=== PATIENT | female | born 1970 | race Caucasian/White ===

== ENCOUNTER 2017-07-04 14:52 | Emergency (ER) | payer SELFPAY ==
[2017-07-04] MEDS ORDERED: IPRATROPIUM/ALBUTEROL 3 ML VIAL NEB ONE (15:13)
[2017-07-04] MEDS ORDERED: cefTRIAXone SODIUM 1 GM in SODIUM CHL 0.9% 50ML MIN-BAG+ 50 ML IVPB ONE (15:15)
[2017-07-04] MEDS ORDERED: cefTRIAXone SODIUM 1 GM VIAL ONE (15:34)
[2017-07-04] MEDS ORDERED: SODIUM CHL 0.9% 50ML MIN-BAG+ 50 ML IVPB ONE (15:34)
[2017-07-04 15:40] VITALS: TEMP 97.6
--- NOTE | 2017-07-04 16:00 | RAD ---
EXAM DESCRIPTION: Chest,2 Views CLINICAL HISTORY: sob COMPARISON: None FINDINGS: Two-view chest x-ray shows cardiomediastinal silhouette and pulmonary vasculature to be within normal limits. The lungs are hyperinflated. Chronic appearing increased interstitial markings are seen without focal consolidation. Mild blunting of costophrenic angles could be secondary to flattening of the hemidiaphragms related to hyperexpansion of the lungs versus small pleural effusions. Mild dextrocurvature of the mid thoracic spine is seen. IMPRESSION: No radiographic evidence of acute cardiopulmonary disease in this emphysematous chest. Electronically signed by: Waldo Reilly MD 07/04/2017 3:59 PM CDT
[2017-07-04] MEDS ORDERED: predniSONE 20 MG TAB PO ONE (16:47)
[2017-07-04] MEDS ORDERED: AZITHROMYCIN 250 MG TAB PO ONE (16:47)
--- NOTE | 2017-07-04 16:50 | ED.PDOC ---
History of Present Illness - General Chief Complaint: Cardiovascular Problem Stated Complaint: chest pressure Time Seen by Provider: 07/04/17 15:04 Source: patient Exam Limitations: no limitations - History of Present Illness Initial Comments: the patient is a 47-year-old female presenting to the emergency room secondary to shortness of breath and a productive cough for the last 24-36 hours. Questionable fevers. No chest pain. She has smoked for a very long time. No history of COPD however. No daily medications. Timing/Duration: 24 hours Severity: moderate Improving Factors: nothing Worsening Factors: nothing Associated Symptoms: malaise, shortness of breath Allergies/Adverse Reactions: Allergies NO KNOWN ALLERGY Allergy (Verified 07/04/17 15:28) Home Medications: Ambulatory Orders Albuterol Inhaler [Ventolin Hfa Inhaler] 2 puff INH Q6HR #1 inh 07/04/17 Azithromycin 500 mg PO DAILY #5 tab 07/04/17 predniSONE [Prednisone] 20 mg PO DAILY #5 tab 07/04/17 Review of Systems - Review of Systems Constitutional: States: malaise EENTM: States: no symptoms reported Respiratory: States: cough, short of breath, wheezing Cardiology: States: no symptoms reported Gastrointestinal/Abdominal: States: no symptoms reported Genitourinary: States: no symptoms reported Musculoskeletal: States: no symptoms reported Skin: States: no symptoms reported Neurological: States: no symptoms reported Endocrine: States: no symptoms reported All other Systems: No Change from Baseline Past Medical History (General) - Patient Medical History Surgical History: tonsillectomy - Vaccination History Hx Influenza Vaccination: No Hx Pneumococcal Vaccination: No - Social History Hx Tobacco Use: No Hx Alcohol Use: No Hx Substance Use: No Hx Substance Use Treatment: No Hx Depression: No - Female History Patient is a Female of Child Bearing Age (10 -59 yrs old): Yes - Triage Comment ED Triage Comment: LMP 3 weeks ago Family Medical History - Family History Brother Hx Family Diabetes: Yes Physical Exam - Physical Exam General Appearance: Alert, No apparent distress Eye Exam: bilateral normal Ears, Nose, Throat: hearing grossly normal, normal ENT inspection, normal pharynx Neck: full range of motion, supple Respiratory: chest non-tender, decreased breath sounds, accessory muscle use, wheezing Cardiovascular/Chest: normal peripheral pulses, regular rate, rhythm, no edema Peripheral Pulses: radial,right: 2+, radial,left: 2+, dorsalis pedis,right: 2+, dorsalis pedis,left: 2+ Gastrointestinal/Abdominal: non tender, soft Rectal Exam: deferred Back Exam: normal inspection, no CVA tenderness Extremity: normal range of motion, non-tender, normal inspection, no pedal edema , no calf tenderness, normal capillary refill Neurologic: management sme II-XII nml as tested, no motor/sensory deficits, alert, normal mood/affect, oriented x 3 Skin Exam: normal color Comments: Vital Signs - 24 hr 07/04/17 07/04/17 14:58 15:29 Temperature 97.6 F Pulse Rate [ 90 pulse ox] Respiratory 18 20 Rate Blood Pressure 145/97 [Left Arm] O2 Sat by Pulse 97 Oximetry Progress - Progress Progress: 07/04/17 16:50 the patient is a 47-year-old female presenting to the emergency room with what appears to be a significant COPD exacerbation with mild hypoxia upon arrival. The patient responded well to the breathing treatment. The patient received a dose of Rocephin, and azithromycin here. She also received a dose of prednisone and a nebulizer treatment. She'll be written for albuterol inhaler for use as an outpatient as well as 5 days of oral prednisone and 5 days of oral azithromycin. She needs to refrain from smoking. ER warnings were given for any worsening. She is to follow up with her primary care doctor next week. - Results/Orders Results/Orders: Laboratory Tests 07/04/17 07/04/17 07/04/17 15:28 15:28 15:47 WBC 7.8 RBC 4.99 Hgb 13.8 Hct 41.8 MCV 83.6 MCH 27.6 MCHC 33.0 RDW 16.4 H Plt Count 283 MPV 9.2 Absolute Neuts (auto) 5.60 Absolute Lymphs (auto) 1.10 Absolute Monos (auto) 0.60 Absolute Eos (auto) 0.40 Absolute Basos (auto) 0.10 Neutrophils % 72.0 Lymphocytes % 13.6 L Monocytes % 8.2 Eosinophils % 4.9 Basophils % 1.3 Sodium 137 Potassium 4.0 Chloride 103 Carbon Dioxide 27 Anion Gap 11.0 L BUN 11 Creatinine 0.72 BUN/Creatinine Ratio 15.3 Random Glucose 80 Serum Osmolality 272.2 L Calcium 8.0 L Total Bilirubin 0.5 AST 19 ALT 14 Alkaline Phosphatase 74 Creatine Kinase 112 CK-MB (CK-2) 2.6 CK-MB (CK-2) % Not Reportable Troponin I < 0.02 B-Natriuretic Peptide 75.3 Serum Total Protein 7.0 Albumin 3.8 Globulin 3.2 Albumin/Globulin Ratio 1.2 Urine Color Urine Appearance Urine pH Ur Specific [place] Urine Protein Urine Glucose (UA) Urine Ketones Urine Blood Urine Nitrite Urine Bilirubin Urine Urobilinogen Ur Leukocyte Esterase Urine RBC Urine WBC Ur Epithelial Cells Urine Bacteria Urine HCG, Qual Group A Strep DNA Negative 07/04/17 07/04/17 16:00 16:00 WBC RBC Hgb Hct MCV MCH MCHC RDW Plt Count MPV Absolute Neuts (auto) Absolute Lymphs (auto) Absolute Monos (auto) Absolute Eos (auto) Absolute Basos (auto) Neutrophils % Lymphocytes % Monocytes % Eosinophils % Basophils % Sodium Potassium Chloride Carbon Dioxide Anion Gap BUN Creatinine BUN/Creatinine Ratio Random Glucose Serum Osmolality Calcium Total Bilirubin AST ALT Alkaline Phosphatase Creatine Kinase CK-MB (CK-2) CK-MB (CK-2) % Troponin I B-Natriuretic Peptide Serum Total Protein Albumin Globulin Albumin/Globulin Ratio Urine Color Yellow Urine Appearance Clear Urine pH 5.5 Ur Specific [place] >= 1.030 Urine Protein 30 Urine Glucose (UA) Negative Urine Ketones 15 H Urine Blood Negative Urine Nitrite Negative Urine Bilirubin Small H Urine Urobilinogen 0.2 Ur Leukocyte Esterase Negative Urine RBC 0 Urine WBC 0 Ur Epithelial Cells 1-3 Urine Bacteria 0 Urine HCG, Qual Negative Group A Strep DNA hest x-ray shows COPD and air trapping. No overt pneumonia. EKG shows mild right axis deviation. A partial right bundle branch block. No acute ST segment changes otherwise concerning for ischemia. There is normal sinus rhythm. Departure - Departure Clinical Impression: COPD with exacerbation Disposition: Discharge to Home or Self Care Condition: Fair Departure Forms: ED Discharge - Pt. Copy, Patient Portal Self Enrollment Instructions: DI for Chronic Obstructive Pulmonary Disease Diet: regular diet Activity: increase activity as tolerated Prescriptions: Albuterol Inhaler [Ventolin Hfa Inhaler] 2 puff INH Q6HR #1 inh Azithromycin 500 mg PO DAILY #5 tab predniSONE [Prednisone] 20 mg PO DAILY #5 tab Home Medications: Ambulatory Orders Albuterol Inhaler [Ventolin Hfa Inhaler] 2 puff INH Q6HR #1 inh 07/04/17 Azithromycin 500 mg PO DAILY #5 tab 07/04/17 predniSONE [Prednisone] 20 mg PO DAILY #5 tab 07/04/17 Additional Instructions: the patient is a 47-year-old female presenting to the emergency room with what appears to be a significant COPD exacerbation with mild hypoxia upon arrival. The patient responded well to the breathing treatment. The patient received a dose of Rocephin, and azithromycin here. She also received a dose of prednisone and a nebulizer treatment. She'll be written for albuterol inhaler for use as an outpatient as well as 5 days of oral prednisone and 5 days of oral azithromycin. She needs to refrain from smoking. ER warnings were given for any worsening. She is to follow up with her primary care doctor next week.
[2017-07-04 17:17] VITALS: BP 122/86; O2SAT 90
== END 2017-07-04 17:19 | disposition home or self-care (01) ==
LOC: ER 14:52
DX: J44.1 Chronic obstructive pulmonary disease with (acute) exacerbation (principal); I45.10 Unspecified right bundle-branch block
CPT/HCPCS: 36415; 71020; 80053; 81001; 81025; 82550; 82553; 83880; 84484; 85025; 87040; 87070; 87502; 87651; 93005; 94640; J0696; J7050; J7512; J7620; Q0144

== ENCOUNTER 2017-08-12 11:32 | Emergency (ER) | payer SELFPAY ==
--- NOTE | 2017-08-12 11:56 | ED.PDOC ---
History of Present Illness - General Chief Complaint: Respiratory Problem Stated Complaint: Cough, congestion Time Seen by Provider: 08/12/17 11:46 Source: patient, RN notes reviewed, Vital Signs reviewed Exam Limitations: no limitations - History of Present Illness Comments: Patient comes in with c/o cough and congestion for ~1 month. She has not improved since last seen on 07/05/17. No fever but + chills and night sweats. Vomited X1 this morning. Timing/Duration: constant - for >1 month Cough Quality/Degree: moderate, productive cough, sputum, blood streaked sputum Possible Cause: no prior episodes Improving Factors: nothing Worsening Factors: nothing Associated Symptoms: cough, fever/chills, sore throat Allergies/Adverse Reactions: Allergies NO KNOWN ALLERGY Allergy (Verified 08/12/17 11:44) Home Medications: Ambulatory Orders Albuterol Inhaler [Ventolin Hfa Inhaler] 2 puff INH Q6HR #1 inh 07/04/17 Azithromycin [Zithromax Z-Carrington] 1 ea PO DAILY #1 pack 08/12/17 Methylprednisolone [Medrol Dose [place]] 4 mg PO DAILY #1 pack 08/12/17 guaiFENesin W/CODEINE LIQ [Robitussin AC] 5 ml PO Q6HR PRN #120 ml 08/12/17 Review of Systems - Review of Systems Constitutional: States: chills, diaphoresis, malaise. Denies: fever EENTM: States: nose congestion, throat pain. Denies: ear pain Respiratory: States: cough, short of breath, wheezing Cardiology: States: no symptoms reported Gastrointestinal/Abdominal: States: vomiting. Denies: abdominal pain Musculoskeletal: States: no symptoms reported Skin: States: no symptoms reported Neurological: States: no symptoms reported All other Systems: No Change from Baseline Past Medical History (General) - Patient Medical History Hx Stroke: No Hx Congestive Heart Failure: No Hx Diabetes: No Hx Cancer: - tubal ligation Hx MRSA: No Surgical History: other - Vaccination History Hx Influenza Vaccination: No Hx Pneumococcal Vaccination: No - Social History Hx Tobacco Use: Yes Hx Alcohol Use: No Hx Substance Use: No Hx Substance Use Treatment: No Hx Depression: No - Female History Patient is a Female of Child Bearing Age (10 -59 yrs old): Yes Patient : No Family Medical History - Family History Brother Hx Family Diabetes: Yes Physical Exam - Physical Exam General Appearance: Alert, Comfortable, Ill Appearing, Well Developed, Well Groomed, Well Hydrated, Well Nourished ENT Exam: normal ENT inspection, hearing grossly normal, TMs normal, pharynx normal Neck: non-tender, supple, normal inspection Respiratory: no respiratory distress, no accessory muscle use, decreased breath sounds - RLL Cardiovascular/Chest: regular rate, rhythm, no gallop, no JVD, no murmur Extremity: normal inspection Neurologic: alert, normal mood/affect, oriented x 3 Skin Exam: normal color, warm/dry Comments: Vital Signs 08/12/17 11:38 Temperature 99.0 F Pulse Rate [ 84 Left Radial] Respiratory 20 Rate Blood Pressure 127/82 [Left Arm] O2 Sat by Pulse 93 L Oximetry Progress - EKG/XRAY/CT XRAY: chest - No acute pulmonaary process per Radiologist Departure - Departure Clinical Impression: Acute bronchitis Qualifiers: Bronchitis organism: unspecified organism Qualified Code(s): J20.9 - Acute bronchitis, unspecified Time of Disposition: 12:21 Disposition: Discharge to Home or Self Care Condition: Good Departure Forms: ED Discharge - Pt. Copy, Patient Portal Self Enrollment Instructions: DI for Acute Bronchitis Diet: resume usual diet Activity: increase activity as tolerated Prescriptions: guaiFENesin W/CODEINE LIQ [Robitussin AC] 5 ml PO Q6HR PRN #120 ml PRN Reason: Cough Azithromycin [Zithromax Z-Carrington] 1 ea PO DAILY #1 pack Methylprednisolone [Medrol Dose [place]] 4 mg PO DAILY #1 pack Home Medications: Ambulatory Orders Albuterol Inhaler [Ventolin Hfa Inhaler] 2 puff INH Q6HR #1 inh 07/04/17 Azithromycin [Zithromax Z-Carrington] 1 ea PO DAILY #1 pack 08/12/17 Methylprednisolone [Medrol Dose [place]] 4 mg PO DAILY #1 pack 08/12/17 guaiFENesin W/CODEINE LIQ [Robitussin AC] 5 ml PO Q6HR PRN #120 ml 08/12/17
[2017-08-12 12:05] VITALS: BP 127/82; TEMP 99; O2SAT 93
--- NOTE | 2017-08-12 12:13 | RAD ---
Procedure: XR CHEST 2 VIEWS Exam Date: 08/12/2017 11:50 AM CDT Ordering Provider: Elizabeth Sparks Clinical Indication: cough/yvonne X 1 month Comparison: None Findings: The lungs are clear and well-aerated. No pleural effusion or pneumothorax. Cardiac silhouette is normal in size. Impression: No acute pulmonary process. Electronically signed by: Nicole Rodriguez MD 08/12/2017 12:12 PM CDT
== END 2017-08-12 12:28 | disposition home or self-care (01) ==
LOC: ER 11:32
DX: J20.9 Acute bronchitis, unspecified (principal); Z87.891 Personal history of nicotine dependence; Z79.899 Other long term (current) drug therapy